=== PATIENT | male | born 1975 | race Caucasian/White ===

== ENCOUNTER 2018-03-23 16:35 | Emergency (ER) | payer MEDICARE, MEDICAID ==
[~2018-03-23] VITALS: Ht 172.7 cm; Wt 81.8 kg
[~2018-03-23 16:35] MED LIST: ATOR20TA66 PO; BUPR300T86 PO; CLON-527 PO; CLOZ100T PO; OMEP-50 PO; OXCA600T PO; VENL150T3 PO
[2018-03-23] MEDS ORDERED: OLANZapine 5mg rapidly disint. tablet PO ONE (16:45)
[2018-03-23 17:04] LABS: BASOPHILS % (AUTO) 0.3 % (0-1); EOSINOPHILS # (AUTO) 0.1 X10'3 (0-0.9); EOSINOPHILS % (AUTO) 1.5 % (0-6); HEMATOCRIT 38.1 % (42.0-52.0); HEMOGLOBIN 13.3 g/dl (14.0-17.9); LYMPHOCYTES # (AUTO) 2.1 X10'3 (1.1-4.8); LYMPHOCYTES % (AUTO) 26.6 % (21-51); MEAN CORPUSCULAR HEMOGLOBIN 32.7 PG (27.0-31.0); MEAN CORPUSCULAR HGB CONC 34.8 % (33.0-36.5); MEAN PLATELET VOLUME 6.6 FL (7.4-10.4); MONOCYTES # (AUTO) 0.6 X10'3 (0-0.9); MONOCYTES % (AUTO) 8.1 % (2-12); NEUTROPHILS % (AUTO) 63.5 % (42-75); PLATELET COUNT 266 X10'3 (140-440); RED BLOOD COUNT 4.05 X10'6 (4.70-6.10); RED CELL DISTRIBUTION WIDTH 14.3 % (11.5-14.5); WHITE BLOOD COUNT 7.9 X10'3 (4.5-11.0)
[2018-03-23 17:33] LABS: ALANINE AMINOTRANSFERASE 42 U/L (12-78); ALBUMIN/GLOBULIN RATIO 1.3 (1.1-1.5); ALKALINE PHOSPHATASE 90 IU/L (46-116); ANION GAP 7 (8-16); ASPARTATE AMINO TRANSFERASE 31 U/L (10-37); BILIRUBIN,TOTAL 0.3 MG/DL (0.1-1.0); BLOOD UREA NITROGEN 10 MG/DL (7-18); BUN/CREATININE RATIO 12.2 (5.4-32.0); CHLORIDE 99 MMOL/L (99-107); CREATININE 0.82 MG/DL (0.60-1.10); ETHANOL < 0.010 GM/DL (0.0-0.010); GLUCOSE 94 MG/DL (70-104); POTASSIUM 4.5 MMOL/L (3.5-5.1); SODIUM 134 MMOL/L (135-145); TOTAL PROTEIN 7.2 G/DL (6.4-8.2); eGFR > 90 ML/MIN
[2018-03-23 17:38] LABS: CLARITY,URINE CLEAR (Clear); COLOR,URINE YELLOW (Yellow); GLUCOSE, URINE NEGATIVE (Neg); KETONES,URINE NEGATIVE (Neg); LEUKOCYTE ESTERASE ,URINE NEGATIVE (Neg); NITRITES, URINE NEGATIVE (Neg); OCCULT BLOOD,URINE NEGATIVE (Neg); PROTEIN,URINE NEGATIVE (Neg); UROBILINOGEN,URINE 0.2 E.U/dL (0.2-1.0)
[2018-03-23 17:50] LABS: URINE AMPHETAMINE SCREEN NEGATIVE (Neg); URINE BARBITUATE SCREEN NEGATIVE (Neg); URINE BENZODIAZEPINES SCREEN NEGATIVE (Neg); URINE CANNABINOID SCREEN NEGATIVE (Neg); URINE COCAINE SCREEN NEGATIVE (Neg); URINE METHADONE SCREEN NEGATIVE (Neg); URINE OPIATE SCREEN NEGATIVE (Neg); URINE PHENCYCLIDINE SCREEN NEGATIVE (Neg)
[2018-03-23 17:59] LABS: UA COLLECTION TYPE CLN CATCH MIDSTREAM
[2018-03-23] MEDS ORDERED: MULT-955 PO (21:02)
[2018-03-23] MEDS ORDERED: CHOL50004 PO (21:02)
[2018-03-23] MEDS ORDERED: VENL-190 (21:02)
[2018-03-23] MEDS ORDERED: DOCU250C4 PO (21:08)
[2018-03-23] MEDS ORDERED: OLAN15TA3 PO (21:08)
[2018-03-23] MEDS ORDERED: CLOZ200T PO (21:10)
[2018-03-23] MEDS ORDERED: ACET325C (21:11)
[2018-03-23] MEDS ORDERED: LORA1TAB PO (21:12)
[2018-03-23] MEDS ORDERED: acetaminophen 325mg tablet PO PRN (21:25)
[2018-03-23] MEDS ORDERED: LORazepam 1 MG tablet PO PRN (21:30)
[2018-03-23] MEDS ORDERED: CLOZAPINE 100MG TAB PO ONE (21:30)
[2018-03-23] MEDS: clonazePAM 1mg tablet PO SCH (22:01)
[2018-03-23] MEDS: oxcarbazepine 150mg tablet PO SCH (22:01)
[2018-03-23] MEDS: atorvastatin 20mg tablet PO SCH (22:02)
[2018-03-23] MEDS: OLANZapine 5mg rapidly disint. tablet PO SCH (22:04)
[2018-03-24] MEDS ORDERED: clonazePAM 1mg tablet PO SCH (08:00)
[2018-03-24] MEDS ORDERED: atorvastatin 20mg tablet PO SCH (08:00)
[2018-03-24] MEDS ORDERED: multivitamins, therapeutics tablet PO SCH (08:00)
[2018-03-24] MEDS ORDERED: vitamin D (cholecalciferol) 1,000 unit tablet PO SCH (08:00)
[2018-03-24] MEDS ORDERED: oxcarbazepine 150mg tablet PO SCH (08:00)
[2018-03-24] MEDS ORDERED: venlafaxine XR 75mg capsule (Q24H) PO SCH (08:00)
[2018-03-24] MEDS: oxcarbazepine 150mg tablet PO SCH ×2 (09:49→21:14)
[2018-03-24] MEDS: docusate sod 250mg capsule PO SCH ×2 (09:50→21:11)
[2018-03-24] MEDS: clonazePAM 1mg tablet PO SCH ×2 (09:51→21:12)
[2018-03-24] MEDS ORDERED: CLOZAPINE 100MG TAB PO SCH (21:00)
[2018-03-24] MEDS ORDERED: OLANZapine 5mg rapidly disint. tablet PO SCH (21:00)
[2018-03-24] MEDS: atorvastatin 20mg tablet PO SCH (21:12)
[2018-03-24] MEDS: OLANZapine 5mg rapidly disint. tablet PO SCH (21:24)
[2018-03-25 06:01] VITALS: BP 114/68
== END 2018-03-25 07:23 ==
LOC: ER 16:35
DX: F31.9 Bipolar disorder, unspecified (principal); R45.851 Suicidal ideations; F25.0 Schizoaffective disorder, bipolar type; E11.9 Type 2 diabetes mellitus without complications; F41.9 Anxiety disorder, unspecified; F32.9 Major depressive disorder, single episode, unspecified; F15.10 Other stimulant abuse, uncomplicated; Z79.899 Other long term (current) drug therapy; Z59.0 Homelessness; Z56.0 Unemployment, unspecified; Z60.2 Problems related to living alone
CPT/HCPCS: 36415; 80053; 80305; 80320; 81003; 84443; 85025; 99285

== ENCOUNTER 2025-08-28 13:51 | Inpatient (IN) | payer MEDICARE, MEDICAID ==
[~2025-08-28] VITALS: Ht 172.7 cm; Wt 84.3 kg
[~2025-08-28 13:51] MED LIST changes: +ACET325C3; -BUPR300T86 PO; +CHOL50004 PO; -CLOZ100T PO; +CLOZ200T8 PO; +DOCU-395 PO; +LORA1TAB PO; +MULT-955 PO; +OLAN15TA3 PO; -OMEP-50 PO; -OXCA600T PO; +OXCA600T9 PO; +VENL-190; -VENL150T3 PO
[2025-08-28 14:42] LABS: LEUKOCYTE ESTERASE ,URINE NEGATIVE (Neg); NITRITES, URINE NEGATIVE (Neg); OCCULT BLOOD,URINE NEGATIVE (Neg)
[2025-08-28 14:47] LABS: UA COLLECTION TYPE CLN CATCH MIDSTREAM
--- NOTE | 2025-08-28 14:47 | Physician Documentation ---
History of Present Illness ~ Chief Complaint: Mental Health Eval Stated Complaint: MH Time Seen by MD: 14:33 Primary Medical Doctor: Jl Mode of Arrival: EMS, Stretcher HPI 50-year-old male presents to the ED with a complaint of suicide ideation. Patient is conserved and reports that he has a plan to kill himself via swallowing glass or cutting himself.. Medication Reconciliation Allergies: Coded Allergies: No Known Allergies (Unverified , 09/22/11) Scheduled Atorvastatin Calcium (Atorvastatin Calcium), 1 TAB PO DAILY, (Reported) Buspirone Hcl* (Buspar*), 1 TAB PO TID, (Reported) Carbamazepine (Carbamazepine), 1 TAB PO TID, (Reported) Chlorpromazine Hcl* (Thorazine*), 100 MG PO Q4H, (Reported) Cholecalciferol (Vitamin D3), 5,000 UNIT PO DAILY, (Reported) Clonazepam (Klonopin), 1 TABLET PO BID, (Reported) Clozapine (Clozapine), 3 TAB PO HS, (Reported) Ferrous Sulfate (Iron), 1 TAB PO HS, (Reported) Gabapentin (Gabapentin), 1 CAP PO Q6H, (Reported) Gabapentin (Gabapentin), 1 TAB PO TID, (Reported) Loperamide HCl (Imodium A-D), 2 CAP PO PRN, (Reported) Multivitamin (Daily Value), 1 TAB PO DAILY, (Reported) Oxcarbazepine (Oxcarbazepine), 750 MG PO BID, (Reported) Risperidone (Risperidone), 1 TAB PO Q12H, (Reported) Risperidone (Risperidone), 1 TAB PO DAILY@1200, (Reported) Trazodone HCl (Trazodone HCl), 1 TAB PO HS, (Reported) Venlafaxine HCl (Effexor Xr), 3 CAP DAILY, (Reported) Scheduled PRN Acetaminophen (Acetaminophen), 2 TAB Q6H PRN for pain, (Reported) Discontinued Medications Docusate Sodium (Docusate Sodium), 1 CAP PO Q12H, (Reported) Discontinued Reason: patient no longer taking Lorazepam* (Ativan*), 1 TAB PO Q8H PRN for for anxiety/agitation, (Reported) Discontinued Reason: patient no longer taking Olanzapine (Zyprexa), 1 TAB PO HS, (Reported) Discontinued Reason: patient no longer taking Past Medical History 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 Physical Exam Vital Signs: Temperature: 98.2, Source: Oral, Heart Rate: 98, Respiratory Rate: 18, BP: 114/75, Pulse Oximetry: 92, Weight: 77.500 Progress Results/Orders Results/Orders Vital Signs 08/28/25 08/28/25 08/28/25 08/28/25 14:05 14:13 17:43 18:33 Temp 98.2 97.2 Pulse 98 62 Resp 17 18 14 B/P (MAP) 114/75 122/71 (88) Pulse Ox 92 94 08/29/25 05:59 Resp 16 B/P (MAP) 127/77 (94) Pulse Ox 94 Laboratory Tests Test 08/28/25 14:05 08/28/25 14:41 08/28/25 14:42 Urine Specimen Description Cln catch midstream Urine Color Yellow Urine Clarity Clear Urine pH 8.0 Urine Specific [place] 1.015 Urine Protein Negative Urine Glucose (UA) Negative Urine Ketones Negative Urine Occult Blood Negative Urine Nitrite Negative Urine Bilirubin Negative Urine Urobilinogen 0.2 Urine Leukocyte Esterase Negative Volume Urine Centrifuged 10 ml Urine Comment Urine Opiates Screen Negative Urine Methadone Screen Negative Urine Fentanyl Screen Negative Urine Barbiturates Screen Negative Urine Phencyclidine Screen Negative Urine Amphetamines Screen Negative Urine Benzodiazepines Screen Negative Urine Cocaine Screen Negative Urine Cannabinoids Screen Negative Drug Screen Comment White Blood Count 6.7 Red Blood Count 4.00 L Hemoglobin 12.7 L Hematocrit 37.2 L Mean Corpuscular Volume 93.1 Mean Corpuscular Hemoglobin 31.6 H Mean Corpuscular Hemoglobin Concent 34.0 Red Cell Distribution Width 13.0 Platelet Count 195 Mean Platelet Volume 6.9 L Neutrophils (%) (Auto) 62.9 Lymphocytes (%) (Auto) 27.7 Monocytes (%) (Auto) 9.0 Eosinophils (%) (Auto) 0.2 Basophils (%) (Auto) 0.2 Neutrophils # (Auto) 4.2 Lymphocytes # (Auto) 1.9 Monocytes # (Auto) 0.6 Eosinophils # (Auto) 0.0 Basophils # (Auto) 0.0 CBC Comment Sodium Level 136 Potassium Level 3.9 Chloride Level 100 Carbon Dioxide Level 30.5 Anion Gap 6 L Blood Urea Nitrogen 9 Creatinine 0.65 Estimated GFR/1.73 m2 > 90 BUN/Creatinine Ratio 13.8 Glucose Level 76 Calcium Level 8.5 Albumin 3.7 Thyroid Stimulating Hormone (TSH) 3.48 Chemistry Comments Ethyl Alcohol Level < 10 SARS-CoV-2 Antigen (Rapid) Negative Departure Impression: Primary Impression: Suicidal ideation Additional Impression: Schizophrenia Additional Instructions: Transfer orders for [facility]: At this time there is no evidence of an emergent medical condition that would preclude (admission/transfer) to a psychiatric unit via [facility] protocol for further psychiatric, as well as medical evaluation and treatment. At this time I have no reason to believe that transfer via [facility] protocol would have serious medical compromise in the patient's health. Referrals: NO PRIMARY CARE PROVIDER (PCP) Signature Scribe Signature: v Attestation: Scribed for Bruce Galeano Records Coordinator by Bruce Wu NP . 08/28/25 23:32 Addendum Pt signed out to me as part of their psychiatric ED evaluation. Pt resting well. Vital signs within expected ranges. Brief Physical Examination: Alert and appropriately oriented. No signs of respiratory distress. Able to ambulate and move all extremities. Medical evaluation does not indicate metabolic derangement. Awaiting final disposition. Though possibly present, patient's symptoms are more consistent with psychiatric concerns than syndromes related to recreational drug use. No evidence of DT's while in the ED during my shift. Ambulating without difficulty. Speaking in full sentences. Easily arousable and interactive. Hemodynamically stable. The patient is currently awaiting Behavioral Health final evaluation and disposition. BRUCE GALEANO NP Aug 28, 2025 14:47 GLORIA CLEMENTS MD Aug 29, 2025 06:13
[2025-08-28 14:51] LABS: MEAN PLATELET VOLUME 6.9 FL (7.4-10.4); RED CELL DISTRIBUTION WIDTH 13.0 % (11.5-14.5)
[2025-08-28 14:57] LABS: URINE AMPHETAMINE SCREEN NEGATIVE (Neg); URINE BARBITUATE SCREEN NEGATIVE (Neg); URINE BENZODIAZEPINES SCREEN NEGATIVE (Neg); URINE CANNABINOID SCREEN NEGATIVE (Neg); URINE COCAINE SCREEN NEGATIVE (Neg); URINE METHADONE SCREEN NEGATIVE (Neg); URINE OPIATE SCREEN NEGATIVE (Neg); URINE PHENCYCLIDINE SCREEN NEGATIVE (Neg)
[2025-08-28 15:15] LABS: CREATININE 0.65 MG/DL (0.60-1.10); ETHANOL < 10 MG/DL (<10); TOTAL CARBON DIOXIDE 30.5 MMOL/L (24-32); eCRCL 133 ML/MIN; eGFR > 90 ML/MIN
[2025-08-28] MEDS ORDERED: CHLO10TA18 PO (16:07)
[2025-08-28] MEDS ORDERED: GABA-530 PO (16:07)
[2025-08-28] MEDS ORDERED: CARB-78 PO (16:07)
[2025-08-28] MEDS ORDERED: RISP-32 PO (16:07)
[2025-08-28] MEDS ORDERED: RISP3TAB42 PO (16:07)
[2025-08-28] MEDS ORDERED: GABA-1405 PO (16:07)
[2025-08-28] MEDS ORDERED: FERR-119 PO (16:07)
[2025-08-28] MEDS ORDERED: BUSP10TA11 PO (16:07)
[2025-08-28] MEDS ORDERED: LOPE-190 PO (16:07)
[2025-08-28] MEDS ORDERED: TRAZ-251 PO (16:07)
[2025-08-28] MEDS ORDERED: loperamide 2mg capsule PO PRN (16:40)
[2025-08-28] MEDS: carBAMazepine 100mg chewable tablet PO SCH (20:02)
[2025-08-29] MEDS: venlafaxine XR 75mg capsule (Q24H) PO SCH (09:18)
[2025-08-29] MEDS: cholecalciferol (vitamin D3) 1,000 unit (25mcg) tablet PO SCH (09:18)
[2025-08-29] MEDS: multivitamins, therapeutics tablet PO SCH (09:19)
[2025-08-29 16:32] LABS: MEAN PLATELET VOLUME 7.5 FL (7.4-10.4); RED CELL DISTRIBUTION WIDTH 13.2 % (11.5-14.5)
[2025-08-29 16:35] VITALS: BP 97/57; PULSE 77; RESP 16; TEMP 97.8; O2SAT 94
[2025-08-29 19:19] VITALS: RESP 16; O2SAT 98
[2025-08-29 20:00] VITALS: BP 110/55; PULSE 64; RESP 16; TEMP 98.4; O2SAT 98
[2025-08-30 07:00] VITALS: BP 109/73; PULSE 72; RESP 16; TEMP 98.8; O2SAT 97
[2025-08-30 08:00] VITALS: RESP 16; O2SAT 97
[2025-08-30 11:39] LABS: MEAN PLATELET VOLUME 7.2 FL (7.4-10.4); RED CELL DISTRIBUTION WIDTH 12.9 % (11.5-14.5)
[2025-08-30] MEDS: NICOTINE POLACRILEX 2 MG LOZENGE BC PRN (12:33)
--- NOTE | 2025-08-30 13:26 | HISTORY AND PHYSICAL ---
MH History & Physical - Blank History and Physical CHIEF COMPLIANT SUICIDAL IDEATION HISTORY OF PRESENT ILLNESS Micah is a 50-year-old male who was placed on a 1799 by [facility] per medical documentation client reported that he is experiencing suicidal ideation with a plan to kill himself by swallowing glass or cutting himself. Client is conserved [facility] in his a client of the start team client currently resides at [facility] facility unlocked. Client has resided and a [facility] for the previous year. This clinician met with client at bedside client was awake and alert was communicative behaviorally appropriate and responsive to this clinician. Client speech was difficult to comprehend often mumbling with difficulties with pronunciation. Client appears moderately oriented however client has been experiencing breakthrough auditory hallucinations. Client reports that he became overwhelmed the previous evening reports that the microphone would not leave him alone leading to onset of suicidal thoughts with a plan intent and means. Client reports that he needed to get space and out of his head. Client reports he informed staff leading staff to request 911 services. CHART REVIEW Pt was placed on a 5150 hold after being evaluated by [facility] clinician due to decompensation at his [facility] facility, [facility]. The pt is LPS conversed with a long history of mental illness, hospitalizations which led to his current conservatorship status. 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 The pt has a history of self-harm to include swallowing foreign objects to the point of requiring medical intervention.The ptappears to have fair insight and is concerned about his medications today. The pt reports that he's afraid that his medications and dosages are mixed up somehow. The pt is pleasant and happy that he is on the unit to obtain assistance in stabilization of his mental health in hopes that he can return to his current [facility] placement. Placement will be determined as the pt stabilizes and his conversator decides an appropriate level of care and placement for the pt. Pt is a current client at [facility] and has a treatment team that supports him adequately. Discharge planning to begin once the pt is stabilized in his mental health symptoms. ASSESSMENT The patient was interviewed in observation room. The patient was actively standing in hallway. The patient endorses "I am doing good." I had someone break through a microphone and I was getting suicidal it does not happen all the time but sometimes." "The microphone came back from wherever they were." 'I do have depression and I take Remeron and Effexor but I am not depressed now." The patient endorses he sees psychiatrist Dr. Boyce as [facility] in [place]. "I been taking my meds I never missed my meds at home." "I live at [facility] and they hand out my meds to me." "I am too drowsy during the day." Denies SI. Denies HI. Denies VH +AH. The patient endorses adequate sleep and food intake The patient is stable no acute distress noted. The patient presents as agitated, irritable with + AH. Per staff report patient is medication compliant. Per staff report no abnormal behaviors. Will continue daily assessment and adjusting treatment as needed. Closely monitor behavior and response to medication during hospitalization. Discussed treatment plan with patient. ASE/risks and benefits of chosen treatment. He verbalized understanding and consented to treatment. REVIEW OF LABS WBC 6.7 RBC 4.00 HEMOGLOBIN 12.7 HEMATOCRIT 37.2 PLATELET 195 SODIUM 136 POTASSIUM 3.9 CHLORIDE 100 ANION GAP 6 BUN 9 CREATININE 0.65 EGFR >90 GLUCOSE 76 CALCIUM 8.5 ALBUMIN 3.7 TSH URINALYSIS NEGATIVE URINE TOX SCREEN NEGATIVE TSH 3.48 MENTAL STATUS EXAM APPEARANCE:AVERAGE HEIGHT OBESE MALE. WEARING A BLACK HAT.BREAD AND MUSTACHE. WEARING GREEN SCRUBS. SPEECH: CIRCUMSTANTIAL EYE CONTACT: NORMAL AFFECT: FULL MOOD: ANXIOUS, IRRITABLE ORIENTATION IMPAIRMENT: NONE MEMORY IMPAIRMENT: NONE ATTENTION: FULL HALLUCINATIONS: AUDITORY SUICIDALITY: NONE DELUSIONS:NONE BEHAVIOR: AGITATED JUDGMENT: FAIR INSIGHT: FAIR TREATMENT VENLAFAXINE ER 225 MG P.O. DAILY Increase CLOZAPINE 300 MG P.O. Q.A.M. CLOZAPINE 550 MG P.O. Q.H.S. RISPERIDONE 3 MG P.O. B.I.D. Discontinue RISPERIDONE 2 MG AT NOON REMERON 45 MG P.O. Q.H.S. initiate GABAPENTIN 600 MG PO TID Discontinue KLONOPIN 1 MG P.O. B.I.D. LPS Monitoring by Staff, Milieu, Group, and Individual counseling as needed -- According to the [place] Suicide Assessment the above named patient is on Q15 MINUTE CHECKS. Total time spent 120 minutes on REVIEW OF Clinical notes [X ] RN notes [X] PCT documentation [X] SW notes Labs [ X] Medications [X] Care trends/care activity [X] Vitals [X] DISCUSSION WITH cleaner greaser [X] Staff SW Treatment Team [X] DISCHARGE UNSURE AT THIS TIME. DISCHARGE BACT TO [facility] ONCE STABLE Past Psychiatric History Past Psychiatric History MULTIPLE PSYCHIATRIC MENTAL HEALTH HOSPITALIZATIONS SCHIZOAFFECTIVE DISORDER Past Medical History Past Medical History SEE MEDICAL H & P Past Surgical History Past Surgical History DENIES ANY SURGICAL HISTORY Past Family History Patient History: (DM Type1) Diabetes mellitus type 1 GRANDFATHER OR GRANDMOTHER Alzheimer's disease GRANDFATHER OR GRANDMOTHER Hypercholesterolemia FATHER Substance Abuse History Substance Abuse History MARIJUANA-DENIES TOBACCO-1 PPD ALCOHOL-DENIES ILLICIT DRUGS-SIX YEARS CLEAN A METHAMPHETAMINES Personal History Current Living Situation [facility] Marital & Relationship History NEVER . NO CHILDREN. SINGLE. Sexual History DEFER Occupational History UNEMPLOYED [employer] Social Activity BORN AND RAISED IN [facility] ONE SISTER ONE BROTHER DROPPED OUT IN 9TH GRADE GREW UP WITH BOTH MOM AND DAD IN HOME [employer] Legal History ARRESTED FOR UNDER THE INFLUENCE OF METHAMPHETAMINES History DENIES ANY HISTORY Developmental History Childhood DENIES ANY FORM OF ABUSE Assessment/Plan Problems/Diagnosis: (1) Schizoaffective disorder, chronic condition (2) Suicidal ideation CODING VISIT-PSYCHIATRY Date of Service: Aug 30, 2025 Billing Provider: TAIWO FRANCES APRN Psych Common Visit Codes: [id number] INP/OBS CARE (High) TAIWO FRANCES APRN Aug 30, 2025 13:26
--- NOTE | 2025-08-30 16:49 | HISTORY AND PHYSICAL ---
History & Physical Providers to CC ~ History of Present Illness Reason for Admit\Complaint: suicide ideation History of Present Illness 50-year-old male presented to the ED with a complaint of suicide ideation. Patient is conserved and reported that he has a plan to kill himself via swallowing glass or cutting himself.. Patient denied having any chronic medical issues. He does take psych medication in outpatient setting from provider . No other acute issues Allergies: Coded Allergies: No Known Allergies (Unverified , 09/22/11) Home Medications Home Medications Active Reported Imodium A-D (Loperamide HCl) 2 Mg Capsule 2 Cap PO PRN 5 Days Thorazine* (Chlorpromazine HCl) 10 Mg Tablet 100 Mg PO Q4H 30 Days Carbamazepine 200 Mg Tablet 1 Tab PO TID 30 Days Gabapentin 600 Mg Tablet 1 Tab PO TID 30 Days Iron (Ferrous Sulfate) 325 Mg (65 Mg Iron) Tablet 1 Tab PO HS 30 Days Buspar* (Buspirone HCl) 10 Mg Tablet 1 Tab PO TID Risperidone 2 Mg Tablet 1 Tab PO DAILY@1200 30 Days Risperidone 3 Mg Tab.rapdis 1 Tab PO Q12H 30 Days Gabapentin 100 Mg Capsule 1 Cap PO Q6H 30 Days Trazodone HCl 50 Mg Tablet 1 Tab PO HS 30 Days Acetaminophen 325 Mg Capsule 2 Tab Q6H PRN Clozapine 200 Mg Tablet 3 Tab PO HS Vitamin D3 (Cholecalciferol) 5,000 Unit Capsule 5,000 Unit PO DAILY Effexor Xr (Venlafaxine HCl) 75 Mg Cap.sr.12h 3 Cap DAILY Daily Value (Multivitamin) 1 Each Tablet 1 Tab PO DAILY Atorvastatin Calcium 20 Mg Tablet 1 Tab PO DAILY Oxcarbazepine 600 Mg Tablet 750 Mg PO BID Klonopin (Clonazepam) 1 Mg Tablet 1 Tablet PO BID Past Medical History 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*, 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, Diabetes, Anxiety, Depression, Schizophrenia Past Surgical History Surgical History Comment no surgical history Family History Family History: (DM Type1) Diabetes mellitus type 1 GRANDFATHER OR GRANDMOTHER Alzheimer's disease GRANDFATHER OR GRANDMOTHER Hypercholesterolemia FATHER Past Social History Social History Comment Alcohol Use: None Drug Use: methamphetamine Lives with: Alone Lives In: Homeless Occupation: unemployed ROS ROS Review of system as mentioned above in HPI rest of the review of system unremarkable Exam Vitals: Vital Signs Date Time Temp Pulse Resp B/P (MAP) Pulse Ox O2 Delivery O2 Flow Rate FiO2 10/1/25 08:00 16 97 Room Air 08/30/25 07:00 98.8 72 109/73 (85) General: General-patient not in any acute distress, alert awake chronically ill- appearing, age-appropriate, looks comfortable HEENT-atraumatic normocephalic, neck supple without elevated JVD, No lymphadenopathy bilaterally. Eyes-no icterus or pallor seen in eyes Chest-clear to auscultation bilaterally, breathing nonlabored no tachypnea, no wheezing, no crepitation, no crackles. 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 Patient is admitted for suicidal lead ideation and other psychiatric issues. Further management as per psychiatric team. We will continue to follow patient from hospitalist team as needed or as per protocol. All labs reviewed. Date of Service: Aug 30, 2025 Billing Provider: MARIE NGUYEN MD Common Visit Codes: [id number] INP/OBS CARE (LOW) MARIE NGUYEN MD Aug 30, 2025 16:49
[2025-08-30 19:00] VITALS: RESP 16; O2SAT 96
[2025-08-30 20:00] VITALS: BP 93/56; PULSE 61; RESP 16; TEMP 96.6; O2SAT 96
[2025-08-31 07:15] VITALS: BP 112/57; PULSE 65; RESP 16; TEMP 98.1; O2SAT 96
[2025-08-31 08:00] VITALS: RESP 16; O2SAT 96
--- NOTE | 2025-08-31 13:43 | PROGRESS NOTE ---
Progress Note Dictate Providers to CC ~ Central Line/PICC still needed: N\\A Antibiotic Ordered?: No MRSA Education MRSA Education Provided to pt: No Objective Vitals Vital Signs Date Time Temp Pulse Resp B/P (MAP) Pulse Ox O2 Delivery O2 Flow Rate FiO2 08/31/25 08:00 16 96 Room Air 08/31/25 07:15 98.1 65 112/57 (75) Lab Results: 08/30/25 1122 08/28/25 1441 Psychiatrist's Progress Note Date of Service: Aug 31, 2025 Notes CHART REVIEW Pt was placed on a 5150 hold after being evaluated by [facility] clinician due to decompensation at his board and care facility, [facility]. The pt is LPS conversed with a long history of mental illness, hospitalizations which led to his current conservatorship status. 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 The pt has a history of self-harm to include swallowing foreign objects to the point of requiring medical intervention.The ptappears to have fair insight and is concerned about his medications today. The pt reports that he's afraid that his medications and dosages are mixed up somehow. The pt is pleasant and happy that he is on the unit to obtain assistance in stabilization of his mental health in hopes that he can return to his current board and care placement. Placement will be determined as the pt stabilizes and his conversator decides an appropriate level of care and placement for the pt. Pt is a current client at [facility] and has a treatment team that supports him adequately. Discharge planning to begin once the pt is stabilized in his mental health symptoms. ASSESSMENT The patient was interviewed in observation room. The patient was actively standing in hallway. The patient endorses " Denies SI. Denies HI. Denies AVH. The patient endorses adequate sleep and food intake The patient is stable no acute distress noted. The patient presents as. Per staff report patient is medication compliant. Per staff report no abnormal behaviors Will continue daily assessment and adjusting treatment as needed. Closely monitor behavior and response to medication during hospitalization. MENTAL STATUS EXAM APPEARANCE:AVERAGE HEIGHT OBESE MALE. FULL WHITE AMBROSIO GAN HAIR BALDING AT THE TOP. WEARING GREEN SCRUBS. SPEECH: CIRCUMSTANTIAL EYE CONTACT: NORMAL AFFECT: FULL MOOD: ANXIOUS, IRRITABLE ORIENTATION IMPAIRMENT: NONE MEMORY IMPAIRMENT: NONE ATTENTION: FULL HALLUCINATIONS: AUDITORY SUICIDALITY: NONE DELUSIONS:NONE BEHAVIOR: AGITATED JUDGMENT: FAIR INSIGHT: FAIR TREATMENT VENLAFAXINE ER 225 MG P.O. DAILY CLOZAPINE 300 MG P.O. Q.A.M. CLOZAPINE 550 MG P.O. Q.H.S. RISPERIDONE 3 MG P.O. B.I.D. REMERON 45 MG P.O. Q.H.S. GABAPENTIN 600 MG PO TID 5250 HOLD-DTS- Patient is unable to formulate a plan to safety. We are still titrating medications to an effective dose while maintaining a therapeutic environment to prevent decompensation and readmission. Monitoring by Staff, Milieu, Group, and Individual counseling as needed -- According to the [place] Suicide Assessment the above named patient is on Q15 MINUTE CHECKS. Total time spent 120 minutes on REVIEW OF Clinical notes [X ] RN notes [X] PCT documentation [X] SW notes Labs [ X] Medications [X] Care trends/care activity [X] Vitals [X] DISCUSSION WITH shipping and receiving [X] Staff SW Treatment Team [X] DISCHARGE UNSURE AT THIS TIME. [facility] ON[facility] ST[facility] Results Of any Diagn. Testing REVIEW OF LABS WBC 6.7 RBC 4.00 HEMOGLOBIN 12.7 HEMATOCRIT 37.2 PLATELET 195 SODIUM 136 POTASSIUM 3.9 CHLORIDE 100 ANION GAP 6 BUN 9 CREATININE 0.65 EGFR >90 GLUCOSE 76 CALCIUM 8.5 ALBUMIN 3.7 TSH URINALYSIS NEGATIVE URINE TOX SCREEN NEGATIVE TSH 3.48 CODING VISIT-PSYCHIATRY Date of Service: Aug 31, 2025 Billing Provider: TAIWO FRANCES APRN Psych Common Visit Codes: [id number] INP/OBS CARE(Mod) TAIWO FRANCES APRN Aug 31, 2025 13:43
[2025-08-31 19:00] VITALS: RESP 16; O2SAT 92
[2025-08-31 20:00] VITALS: BP 97/56; PULSE 70; RESP 16; TEMP 97.6; O2SAT 92
[2025-09-01 07:30] VITALS: BP 98/62; PULSE 67; RESP 16; TEMP 97.9; O2SAT 95
[2025-09-01] MEDS: magnesium hydroxide 30ml (MOM) UD suspension PO PRN (10:18)
--- NOTE | 2025-09-01 15:39 | PROGRESS NOTE ---
Progress Note Dictate Providers to CC ~ Central Line/PICC still needed: N\\A Antibiotic Ordered?: No MRSA Education MRSA Education Provided to pt: No Objective Vitals Vital Signs Date Time Temp Pulse Resp B/P (MAP) Pulse Ox O2 Delivery O2 Flow Rate FiO2 09/01/25 07:30 97.9 67 98/62 (74) 95 Room Air 09/01/25 07:30 16 Lab Results: 08/30/25 1122 08/28/25 1441 Problem\\Assessment\\Plan Problems/Diagnosis: (1) Schizoaffective disorder, chronic condition (2) Suicidal ideation Psychiatrist's Progress Note Date of Service: Sep 01, 2025 Notes CHART REVIEW Pt was placed on a 5150 hold after being evaluated by [facility] clinician due to decompensation at his board and care facility, [facility]. The pt is LPS conversed with a long history of mental illness, hospitalizations which led to his current conservatorship status. 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 The pt has a history of self-harm to include swallowing foreign objects to the point of requiring medical intervention.The ptappears to have fair insight and is concerned about his medications today. The pt reports that he's afraid that his medications and dosages are mixed up somehow. The pt is pleasant and happy that he is on the unit to obtain assistance in stabilization of his mental health in hopes that he can return to his current board and care placement. Placement will be determined as the pt stabilizes and his conversator decides an appropriate level of care and placement for the pt. Pt is a current client at [facility] and has a treatment team that supports him adequately. Discharge planning to begin once the pt is stabilized in his mental health symptoms. ASSESSMENT The patient was interviewed in observation room. The patient was actively sitting in chair with legs crossed on his bed. The patient endorses "I am feeling pretty good." "I am ready to go back to [facility]." The patient endorses no worsening mental health symptoms. Denies SI. Denies HI. Denies AVH. "The voices are good."The patient endorses adequate sleep and food intake The patient is stable no acute distress noted. The patient presents as less anxious. Per staff report patient is medication compliant. Per staff report no abnormal behaviors. Will continue daily assessment and adjusting treatment as needed. Closely monitor behavior and response to medication during hospitalization. Results Of any Diagn. Testing REVIEW OF LABS WBC 6.7 RBC 4.00 HEMOGLOBIN 12.7 HEMATOCRIT 37.2 PLATELET 195 SODIUM 136 POTASSIUM 3.9 CHLORIDE 100 ANION GAP 6 BUN 9 CREATININE 0.65 EGFR >90 GLUCOSE 76 CALCIUM 8.5 ALBUMIN 3.7 TSH URINALYSIS NEGATIVE URINE TOX SCREEN NEGATIVE TSH 3.48 Speech: Other (CIRCUMSTANTIAL) Eye Contact: Other (INTERMITTENT) Motor Activity: Normal Affect: Constricted Orientation Impairment: None Memory Impairment: None Attention: Normal Hallucinations: Auditory Other: None Suicidality: None Homicidality: None Delusions: None Behavior: Cooperative Insight: Fair Judgment: Fair Treatment VENLAFAXINE ER 225 MG P.O. DAILY CLOZAPINE 300 MG P.O. Q.A.M. CLOZAPINE 550 MG P.O. Q.H.S. RISPERIDONE 3 MG P.O. B.I.D. REMERON 45 MG P.O. Q.H.S. GABAPENTIN 600 MG PO TID 5250 HOLD-DTS- Patient is unable to formulate a plan to safety. We are still titrating medications to an effective dose while maintaining a therapeutic environment to prevent decompensation and readmission. Monitoring by Staff, Milieu, Group, and Individual counseling as needed -- According to the [place] Suicide Assessment the above named patient is on Q15 MINUTE CHECKS. Total time spent 40 minutes on REVIEW OF Clinical notes [X ] RN notes [X] PCT documentation [X] SW notes Labs [ X] Medications [X] Care trends/care activity [X] Vitals [X] DISCUSSION WITH mangle roll operator [X] Staff SW Treatment Team [X] Discharge UNSURE AT THIS TIME. DISCHARGE BACT TO [facility] ONCE STABLE CODING VISIT-PSYCHIATRY Date of Service: Sep 01, 2025 Billing Provider: TAIWO FRANCES APRN Psych Common Visit Codes: [id number] INP/OBS CARE(Mod) TAIWO FRANCES APRN Sep 01, 2025 15:39
--- NOTE | 2025-09-01 16:23 | PROGRESS NOTE- Residence ---
Progress Note - Resident Providers to CC Resident Creating Document: SVETLANA QURESHI RES ~ Antibiotic Timeout Antibiotic Ordered?: No Subjective Patient was seen and examined in the [facility] unit. He was alert, communicative, in no acute distress. He denied any issues other than constipation, for which she reported taking milk of magnesia and was awaiting relief. He was advised to notify staff if constipation persists or does not improve. Objective Vital Signs Date Time Temp Pulse Resp B/P (MAP) Pulse Ox O2 Delivery O2 Flow Rate FiO2 09/01/25 07:30 97.9 67 98/62 (74) 95 Room Air 09/01/25 07:30 16 General: Awake and Alert, no acute distress. HEENT: Conjunctiva pink, Sclera clear, Mucus Membranes moist. Neck: Supple without masses and tenderness. Resp: Unlabored. Lungs clear to auscultation bilaterally. Heart: Regular Rate and rhythm, normal S1 and S2 without murmur, rub or gallop. Abdomen: Soft and non tender no organomegaly Extremities: No cyanosis,clubbing or edema. Skin: Warm and Dry. Result Diagram: 08/30/25 1122 08/28/25 1441 Advance Care Planning Advanced Care plannin - 30 Minutes Assessment Assessment Assessment and plan Patient is a 50-year-old male with a history of seizure disorder and she is a free in a, admitted to the [facility] unit for suicidal ideation. He is currently being managed by psychiatry team. Suicidal ideation/schizophrenia History of seizure disorder Being managed by Psychiatry unit Medical issues No acute medical problems at this time Hospitalist Services we will follow for medical support as needed. At present, the patient has no acute medical issues. Svetlana Qureshi Internal Medicine Resident, PGY-3 Date of Service: Sep 01, 2025 Billing Provider: JHONATAN LOPEZ MD Common Visit Codes: [id number] INP/OBS CARE(MOD) SVETLANA QURESHI RES Sep 01, 2025 16:23 JHONATAN LOPEZ MD Sep 02, 2025 09:46
[2025-09-01 19:00] VITALS: RESP 18; O2SAT 97
[2025-09-01 20:00] VITALS: BP 89/55; PULSE 77; RESP 18; TEMP 98; O2SAT 97
[2025-09-02 07:00] VITALS: RESP 12; O2SAT 97
[2025-09-02 08:00] VITALS: BP 106/61; PULSE 69; RESP 12; TEMP 97.6; O2SAT 97
--- NOTE | 2025-09-02 15:50 | PROGRESS NOTE ---
Progress Note Dictate Providers to CC ~ Central Line/PICC still needed: N\\A Antibiotic Ordered?: No MRSA Education MRSA Education Provided to pt: No Objective Vitals Vital Signs Date Time Temp Pulse Resp B/P (MAP) Pulse Ox O2 Delivery O2 Flow Rate FiO2 09/02/25 08:00 97.6 69 12 106/61 (76) 97 09/02/25 07:00 Room Air Lab Results: 08/30/25 1122 Problem\\Assessment\\Plan Problems/Diagnosis: (1) Schizoaffective disorder, chronic condition (2) Suicidal ideation Psychiatrist's Progress Note Date of Service: Sep 02, 2025 Notes CHART REVIEW Pt was placed on a 5150 hold after being evaluated by [facility] clinician due to decompensation at his board and care facility, [facility]. The pt is LPS conversed with a long history of mental illness, hospitalizations which led to his current conservatorship status. 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 The pt has a history of self-harm to include swallowing foreign objects to the point of requiring medical intervention.The ptappears to have fair insight and is concerned about his medications today. The pt reports that he's afraid that his medications and dosages are mixed up somehow. The pt is pleasant and happy that he is on the unit to obtain assistance in stabilization of his mental health in hopes that he can return to his current board and care placement. Placement will be determined as the pt stabilizes and his conversator decides an appropriate level of care and placement for the pt. Pt is a current client at [facility] and has a treatment team that supports him adequately. Discharge planning to begin once the pt is stabilized in his mental health symptoms. ASSESSMENT The patient was interviewed in observation room. The patient was actively ambulating in hallway. The patient endorses "Good." The patient endorses no worsening mental health symptoms. Denies SI. Denies HI. Denies AVH. "The voices are good."The patient endorses adequate sleep and food intake The patient is stable no acute distress noted. The patient presents as calm and cooperative. Per staff report patient is medication compliant. Per staff report no abnormal behaviors. Will continue daily assessment and adjusting treatment as needed. Closely monitor behavior and response to medication during hospitalization. Results Of any Diagn. Testing REVIEW OF LABS WBC 6.7 RBC 4.00 HEMOGLOBIN 12.7 HEMATOCRIT 37.2 PLATELET 195 SODIUM 136 POTASSIUM 3.9 CHLORIDE 100 ANION GAP 6 BUN 9 CREATININE 0.65 EGFR >90 GLUCOSE 76 CALCIUM 8.5 ALBUMIN 3.7 TSH URINALYSIS NEGATIVE URINE TOX SCREEN NEGATIVE TSH 3.48 Treatment VENLAFAXINE ER 225 MG P.O. DAILY CLOZAPINE 300 MG P.O. Q.A.M. CLOZAPINE 550 MG P.O. Q.H.S. RISPERIDONE 3 MG P.O. B.I.D. REMERON 45 MG P.O. Q.H.S. GABAPENTIN 600 MG PO TID 5250 HOLD-DTS- Patient is unable to formulate a plan to safety. We are still titrating medications to an effective dose while maintaining a therapeutic environment to prevent decompensation and readmission. Monitoring by Staff, Milieu, Group, and Individual counseling as needed -- According to the [place] Suicide Assessment the above named patient is on Q15 MINUTE CHECKS. Total time spent 30 minutes on REVIEW OF Clinical notes [X ] RN notes [X] PCT documentation [X] SW notes Labs [ X] Medications [X] Care trends/care activity [X] Vitals [X] DISCUSSION WITH rn hemo dialysis [X] Staff SW Treatment Team [X] Discharge UNSURE AT THIS TIME. DISCHARGE BACK TO [facility] ONCE STABLE CODING VISIT-PSYCHIATRY Date of Service: Sep 02, 2025 Billing Provider: TAIWO FRANCES APRN Psych Common Visit Codes: [id number] INP/OBS CARE(Mod) TAIWO FRANCES APRN Sep 02, 2025 15:50
[2025-09-02 19:00] VITALS: RESP 16; O2SAT 97
[2025-09-02 20:00] VITALS: BP 101/61; PULSE 73; RESP 16; TEMP 97.4; O2SAT 97
[2025-09-03 07:00] VITALS: RESP 15; O2SAT 98
[2025-09-03 08:00] VITALS: BP 111/65; PULSE 73; RESP 14; TEMP 97.3; O2SAT 98
--- NOTE | 2025-09-03 10:28 | PROGRESS NOTE ---
Progress Note Dictate Providers to CC ~ Central Line/PICC still needed: N\\A Antibiotic Ordered?: No MRSA Education MRSA Education Provided to pt: No Objective Vitals Vital Signs Date Time Temp Pulse Resp B/P (MAP) Pulse Ox O2 Delivery O2 Flow Rate FiO2 09/03/25 08:00 97.3 73 14 111/65 (80) 98 Room Air Lab Results: 08/30/25 1122 Problem\\Assessment\\Plan Problems/Diagnosis: (1) Schizoaffective disorder, chronic condition (2) Suicidal ideation Psychiatrist's Progress Note Date of Service: Sep 03, 2025 Notes CHART REVIEW Pt was placed on a 5150 hold after being evaluated by [facility] clinician due to decompensation at his board and care facility, [facility]. The pt is LPS conversed with a long history of mental illness, hospitalizations which led to his current conservatorship status. 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 The pt has a history of self-harm to include swallowing foreign objects to the point of requiring medical intervention.The ptappears to have fair insight and is concerned about his medications today. The pt reports that he's afraid that his medications and dosages are mixed up somehow. The pt is pleasant and happy that he is on the unit to obtain assistance in stabilization of his mental health in hopes that he can return to his current board and care placement. Placement will be determined as the pt stabilizes and his conversator decides an appropriate level of care and placement for the pt. Pt is a current client at [facility] and has a treatment team that supports him adequately. Discharge planning to begin once the pt is stabilized in his mental health symptoms. ASSESSMENT The patient was interviewed in observation room. The patient was actively sitting up in chair in room. The patient endorses "pretty good." The patient endorses he hopes to get back to [facility] soon. The patient endorses he works there and makes $20 a week. "I need to get back to work." The patient endorses no worsening mental health symptoms. Denies SI. Denies HI. Denies AVH. The patient endorses adequate sleep and food intake The patient is stable no acute distress noted. The patient presents as calm and cooperative. Per staff report patient is medication compliant. Per staff report no abnormal behaviors. Will continue daily assessment and adjusting treatment as needed. Closely monitor behavior and response to medication during hospitalization. Results Of any Diagn. Testing REVIEW OF LABS WBC 6.7 RBC 4.00 HEMOGLOBIN 12.7 HEMATOCRIT 37.2 PLATELET 195 SODIUM 136 POTASSIUM 3.9 CHLORIDE 100 ANION GAP 6 BUN 9 CREATININE 0.65 EGFR >90 GLUCOSE 76 CALCIUM 8.5 ALBUMIN 3.7 TSH URINALYSIS NEGATIVE URINE TOX SCREEN NEGATIVE TSH 3.48 Speech: Normal (RATE/TONE/RHYTHM) Eye Contact: Normal Motor Activity: Normal Affect: Full Orientation Impairment: None Memory Impairment: None Attention: Normal Hallucinations: None Other: None Suicidality: None Homicidality: None Delusions: None Behavior: Cooperative Insight: Fair Judgment: Fair Treatment VENLAFAXINE ER 225 MG P.O. DAILY CLOZAPINE 300 MG P.O. Q.A.M. CLOZAPINE 550 MG P.O. Q.H.S. RISPERIDONE 3 MG P.O. B.I.D. REMERON 45 MG P.O. Q.H.S. GABAPENTIN 600 MG PO TID 5250 HOLD-DTS- Patient is unable to formulate a plan to safety. We are still titrating medications to an effective dose while maintaining a therapeutic environment to prevent decompensation and readmission. Monitoring by Staff, Milieu, Group, and Individual counseling as needed -- According to the [place] Suicide Assessment the above named patient is on Q15 MINUTE CHECKS. Total time spent 25 minutes on REVIEW OF Clinical notes [X ] RN notes [X] PCT documentation [X] SW notes Labs [ X] Medications [X] Care trends/care activity [X] Vitals [X] DISCUSSION WITH software technical lead [X] Staff SW Treatment Team [X] Discharge UNSURE AT THIS TIME. DISCHARGE BACK TO [facility] ONCE STABLE CODING VISIT-PSYCHIATRY Date of Service: Sep 03, 2025 Billing Provider: TAIWO FRANCES APRN Psych Common Visit Codes: [id number] INP/OBS CARE(Low) TAIWO FRANCES APRN Sep 03, 2025 10:27
--- NOTE | 2025-09-03 18:42 | PROGRESS NOTE- Residence ---
Progress Note - Resident Providers to CC Resident Creating Document: NORMA FANG, RES ~ Antibiotic Timeout Antibiotic Ordered?: No Subjective Patient was seen and examined in the [facility] unit. He was alert, communicative, in no acute distress. He denied any issues other than constipation, for which she reported taking milk of magnesia and was awaiting relief. He was advised to notify staff if constipation persists or does not improve. Objective Vital Signs Date Time Temp Pulse Resp B/P (MAP) Pulse Ox O2 Delivery O2 Flow Rate FiO2 09/03/25 08:00 97.3 73 14 111/65 (80) 98 Room Air Result Diagram: 08/30/25 1122 General: Awake and Alert, no acute distress. HEENT: Conjunctiva pink, Sclera clear, Mucus Membranes moist. Neck: Supple without masses and tenderness. Resp: Unlabored. Lungs clear to auscultation bilaterally. Heart: Regular Rate and rhythm, normal S1 and S2 without murmur, rub or gallop. Abdomen: Soft and non tender no organomegaly Extremities: No cyanosis,clubbing or edema. Skin: Warm and Dry. Plan Plan Patient is a 50-year-old male with a history of seizure disorder and admitted to the [facility] unit for suicidal ideation. He is currently being managed by psychiatry team. Suicidal ideation/schizophrenia History of seizure disorder Being managed by Psychiatry unit Constipation Milk of Magnesia Medical issues CBC, CMP, urinalysis are within normal limits and urine toxicology is negative No acute medical problems at this time Hospitalist Services we will follow for medical support as needed. At present, the patient has no acute medical issues. Nayely Fang Internal Medicine Resident, PGY-1 Date of Service: Sep 03, 2025 Billing Provider: JHONATAN LOPEZ MD Common Visit Codes: [id number] INP/OBS CARE(MOD) NORMA FANG, ZHOU Sep 03, 2025 18:42 JHONATAN LOPEZ MD Sep 03, 2025 21:47
[2025-09-03 19:00] VITALS: RESP 20; O2SAT 98
[2025-09-03 20:00] VITALS: BP 117/75; PULSE 76; RESP 20; TEMP 98.2; O2SAT 98
[2025-09-04 07:00] VITALS: RESP 16; O2SAT 99
[2025-09-04 08:00] VITALS: BP 109/66; PULSE 71; RESP 16; TEMP 98.3; O2SAT 99
--- NOTE | 2025-09-04 12:43 | PROGRESS NOTE ---
Progress Note Dictate Providers to CC ~ Central Line/PICC still needed: N\\A Antibiotic Ordered?: No MRSA Education MRSA Education Provided to pt: No Objective Vitals Vital Signs Date Time Temp Pulse Resp B/P (MAP) Pulse Ox O2 Delivery O2 Flow Rate FiO2 09/04/25 08:00 98.3 71 16 109/66 (80) 99 Room Air Problem\\Assessment\\Plan Problems/Diagnosis: (1) Schizoaffective disorder, chronic condition (2) Suicidal ideation Psychiatrist's Progress Note Date of Service: Sep 04, 2025 Notes CHART REVIEW Pt was placed on a 5150 hold after being evaluated by [facility] clinician due to decompensation at his board and care facility, [facility]. The pt is LPS conversed with a long history of mental illness, hospitalizations which led to his current conservatorship status. 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 The pt has a history of self-harm to include swallowing foreign objects to the point of requiring medical intervention.The ptappears to have fair insight and is concerned about his medications today. The pt reports that he's afraid that his medications and dosages are mixed up somehow. The pt is pleasant and happy that he is on the unit to obtain assistance in stabilization of his mental health in hopes that he can return to his current board and care placement. Placement will be determined as the pt stabilizes and his conversator decides an appropriate level of care and placement for the pt. Pt is a current client at [facility] and has a treatment team that supports him adequately. Discharge planning to begin once the pt is stabilized in his mental health symptoms. ASSESSMENT The patient was interviewed in observation room. The patient was actively ambulating in hallway. The patient endorses "I'm good." The patient endorses he is ready to go back to [facility]. Patient was informed that his hospice social worker we will follow up with his conservator regarding discharge date. The patient endorses no worsening mental health symptoms. Denies SI. Denies HI. Denies AVH. The patient endorses adequate sleep and food intake The patient is stable no acute distress noted. The patient presents as calm and cooperative. Per staff report patient is medication compliant. Per staff report no abnormal behaviors. Will continue daily assessment and adjusting treatment as needed. Closely monitor behavior and response to medication during hospitali zation. The patient is stable for discharge. Results Of any Diagn. Testing REVIEW OF LABS WBC 6.7 RBC 4.00 HEMOGLOBIN 12.7 HEMATOCRIT 37.2 PLATELET 195 SODIUM 136 POTASSIUM 3.9 CHLORIDE 100 ANION GAP 6 BUN 9 CREATININE 0.65 EGFR >90 GLUCOSE 76 CALCIUM 8.5 ALBUMIN 3.7 TSH URINALYSIS NEGATIVE URINE TOX SCREEN NEGATIVE TSH 3.48 Speech: Normal Eye Contact: Normal Motor Activity: Normal Affect: Full Orientation Impairment: None Memory Impairment: None Attention: Normal Hallucinations: None Other: None Suicidality: None Homicidality: None Delusions: None Behavior: Cooperative Insight: Fair Judgment: Fair Treatment VENLAFAXINE ER 225 MG P.O. DAILY CLOZAPINE 300 MG P.O. Q.A.M. CLOZAPINE 550 MG P.O. Q.H.S. RISPERIDONE 3 MG P.O. B.I.D. REMERON 45 MG P.O. Q.H.S. GABAPENTIN 600 MG PO TID 5250 HOLD-DTS- Patient is unable to formulate a plan to safety. We are still titrating medications to an effective dose while maintaining a therapeutic environment to prevent decompensation and readmission. Monitoring by Staff, Milieu, Group, and Individual counseling as needed -- According to the [place] Suicide Assessment the above named patient is on Q15 MINUTE CHECKS. Total time spent 45 minutes on REVIEW OF Clinical notes [X ] RN notes [X] PCT documentation [X] SW notes Labs [ X] Medications [X] Care trends/care activity [X] Vitals [X] DISCUSSION WITH slitter scorer cut off operator [X] Staff SW Treatment Team [X] Discharge UNSURE AT THIS TIME. DISCHARGE BACK TO [facility] ONCE STABLE CODING VISIT-PSYCHIATRY Date of Service: Sep 04, 2025 Billing Provider: TAIWO FRANCES APRN Psych Common Visit Codes: [id number] INP/OBS CARE(Low) TAIWO FRANCES APRN Sep 04, 2025 12:43
[2025-09-04 19:00] VITALS: RESP 16; O2SAT 96
[2025-09-04 20:00] VITALS: BP 104/64; PULSE 67; RESP 16; TEMP 97.4; O2SAT 96
[2025-09-05 07:00] VITALS: RESP 16; O2SAT 97
[2025-09-05 08:00] VITALS: BP 111/67; PULSE 70; RESP 16; TEMP 97.9; O2SAT 97
--- NOTE | 2025-09-05 11:37 | PROGRESS NOTE ---
Daily Progress Note Providers to CC ~ Antibiotic Timeout Antibiotic Ordered?: No Subjective seen and examined in the [facility] unit. Objective Vital Signs Date Time Temp Pulse Resp B/P (MAP) Pulse Ox O2 Delivery O2 Flow Rate FiO2 09/05/25 08:00 97.9 70 16 111/67 (82) 97 Room Air General: Awake and Alert, no acute distress. HEENT: Conjunctiva pink, Sclera clear, Mucus Membranes moist. Neck: Supple without masses and tenderness. Lungs clear to auscultation bilaterally. Heart: Regular Rate and rhythm, normal S1 and S2 without murmur, rub or gallop. Abdomen: Soft and non tender no organomegaly Extremities: No cyanosis,clubbing or edema. Skin: No rash or ulcers. Other Results Medications reviewed Problem\Assessment\Plan Patient is a 50-year-old male with a history of seizure disorder and admitted to the [facility] unit for suicidal ideation. He is currently being managed by psychiatry team. Suicidal ideation/schizophrenia: Continue treat per psych recommendations. History of seizure disorder: No seizures reported Hyperlipidemia: Continue atorvastatin Patient has no acute issues. I will sign off. Please contact the hospitalist team for any change in patient's medical condition. Hospitalist team will continue follow the patient as per hospital protocol. Date of Service: Sep 05, 2025 Billing Provider: ELIGIO HOUSE MD Common Visit Codes: [id number] INP/OBS CARE(LOW) ELIGIO HOUSE MD Sep 05, 2025 11:37
[2025-09-05 19:26] VITALS: RESP 18; O2SAT 97
[2025-09-05 19:29] VITALS: BP 102/66; PULSE 67; RESP 18; TEMP 98; O2SAT 97
[2025-09-06 07:00] VITALS: BP 93/56; PULSE 70; RESP 16; TEMP 98; O2SAT 96
[2025-09-06 09:02] LABS: MEAN PLATELET VOLUME 6.9 FL (7.4-10.4); RED CELL DISTRIBUTION WIDTH 13.0 % (11.5-14.5)
--- NOTE | 2025-09-06 10:52 | PROGRESS NOTE ---
Progress Note Dictate Providers to CC ~ Central Line/PICC still needed: N\\A Antibiotic Ordered?: No MRSA Education MRSA Education Provided to pt: No Objective Vitals Vital Signs Date Time Temp Pulse Resp B/P (MAP) Pulse Ox O2 Delivery O2 Flow Rate FiO2 09/06/25 07:00 16 96 Room Air 09/06/25 07:00 98.0 70 93/56 (68) Lab Results: 09/06/25 0837 Problem\\Assessment\\Plan Problems/Diagnosis: (1) Schizoaffective disorder, chronic condition (2) Suicidal ideation Psychiatrist's Progress Note Date of Service: Sep 05, 2025 Notes CHART REVIEW Pt was placed on a 5150 hold after being evaluated by [facility] clinician due to decompensation at his board and care facility, [facility]. The pt is LPS conversed with a long history of mental illness, hospitalizations which led to his current conservatorship status. 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 The pt has a history of self-harm to include swallowing foreign objects to the point of requiring medical intervention.The ptappears to have fair insight and is concerned about his medications today. The pt reports that he's afraid that his medications and dosages are mixed up somehow. The pt is pleasant and happy that he is on the unit to obtain assistance in stabilization of his mental health in hopes that he can return to his current board and care placement. Placement will be determined as the pt stabilizes and his conversator decides an appropriate level of care and placement for the pt. Pt is a current client at [facility] and has a treatment team that supports him adequately. Discharge planning to begin once the pt is stabilized in his mental health symptoms. ASSESSMENT The patient was interviewed in observation room. The patient was actively siting in rec room. The patient endorses "I'm doing good." The patient endorses no worsening mental health symptoms. Denies SI. Denies HI. Denies AVH. The patient endorses adequate sleep and food intake The patient is stable no acute distress noted. The patient presents as calm and cooperative. Per staff report patient is medication compliant. Per staff report no abnormal behaviors. Will continue daily assessment and adjusting treatment as needed. Closely monitor behavior and response to medication during hospitalization. Results Of any Diagn. Testing REVIEW OF LABS WBC 6.7 RBC 4.00 HEMOGLOBIN 12.7 HEMATOCRIT 37.2 PLATELET 195 SODIUM 136 POTASSIUM 3.9 CHLORIDE 100 ANION GAP 6 BUN 9 CREATININE 0.65 EGFR >90 GLUCOSE 76 CALCIUM 8.5 ALBUMIN 3.7 TSH Speech: Normal Eye Contact: Normal Motor Activity: Normal Affect: Full Mood: Euthymic Orientation Impairment: None Memory Impairment: None Attention: Normal Hallucinations: None Other: None Suicidality: None Homicidality: None Delusions: None Behavior: Cooperative Insight: Good Judgment: Good Treatment VENLAFAXINE ER 225 MG P.O. DAILY CLOZAPINE 300 MG P.O. Q.A.M. CLOZAPINE 550 MG P.O. Q.H.S. RISPERIDONE 3 MG P.O. B.I.D. REMERON 45 MG P.O. Q.H.S. GABAPENTIN 600 MG PO TID 5250 HOLD-DTS- Patient is unable to formulate a plan to safety. We are still titrating medications to an effective dose while maintaining a therapeutic environment to prevent decompensation and readmission. Monitoring by Staff, Milieu, Group, and Individual counseling as needed -- According to the [place] Suicide Assessment the above named patient is on Q15 MINUTE CHECKS. Total time spent 25 minutes on REVIEW OF Clinical notes [X ] RN notes [X] PCT documentation [X] SW notes Labs [ X] Medications [X] Care trends/care activity [X] Vitals [X] DISCUSSION WITH ground crew lines person [X] Staff SW Treatment Team [X] Discharge UNSURE AT THIS TIME. DISCHARGE BACK TO [facility] ONCE STABLE CODING VISIT-PSYCHIATRY Date of Service: Sep 05, 2025 Billing Provider: TAIWO FRANCES APRN Psych Common Visit Codes: [id number] INP/OBS CARE(Low) TAIWO FRANCES APRN Sep 06, 2025 10:52
--- NOTE | 2025-09-06 10:57 | PROGRESS NOTE ---
Progress Note Dictate Providers to CC ~ Central Line/PICC still needed: N\\A Antibiotic Ordered?: No MRSA Education MRSA Education Provided to pt: No Objective Vitals Vital Signs Date Time Temp Pulse Resp B/P (MAP) Pulse Ox O2 Delivery O2 Flow Rate FiO2 09/06/25 07:00 16 96 Room Air 09/06/25 07:00 98.0 70 93/56 (68) Lab Results: 09/06/25 0837 Problem\\Assessment\\Plan Problems/Diagnosis: (1) Schizoaffective disorder, chronic condition (2) Suicidal ideation Psychiatrist's Progress Note Date of Service: Sep 06, 2025 Notes CHART REVIEW Pt was placed on a 5150 hold after being evaluated by [facility] clinician due to decompensation at his board and care facility, [facility]. The pt is LPS conversed with a long history of mental illness, hospitalizations which led to his current conservatorship status. 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 The pt has a history of self-harm to include swallowing foreign objects to the point of requiring medical intervention.The ptappears to have fair insight and is concerned about his medications today. The pt reports that he's afraid that his medications and dosages are mixed up somehow. The pt is pleasant and happy that he is on the unit to obtain assistance in stabilization of his mental health in hopes that he can return to his current board and care placement. Placement will be determined as the pt stabilizes and his conversator decides an appropriate level of care and placement for the pt. Pt is a current client at [facility] and has a treatment team that supports him adequately. Discharge planning to begin once the pt is stabilized in his mental health symptoms. ASSESSMENT The patient was interviewed in observation room. The patient was actively siting in rec room. The patient endorses "good." The patient endorses he is ready for discharge. The patient was informed he will discharge back to [facility] on Thursday. The patient endorses no worsening mental health symptoms. Denies SI. Denies HI. Denies AVH. The patient endorses adequate sleep and food intake The patient is stable no acute distress noted. The patient presents as calm and cooperative. Per staff report patient is medication compliant. Per staff report no abnormal behaviors. Will continue daily assessment and adjusting treatment as needed. Closely monitor behavior and response to medication during hospitalization. Results Of any Diagn. Testing Results Of any Diagn. Testing REVIEW OF LABS WBC 6.7 RBC 4.00 HEMOGLOBIN 12.7 HEMATOCRIT 37.2 PLATELET 195 SODIUM 136 POTASSIUM 3.9 CHLORIDE 100 ANION GAP 6 BUN 9 CREATININE 0.65 EGFR >90 GLUCOSE 76 CALCIUM 8.5 ALBUMIN 3.7 TSH Speech: Normal Eye Contact: Normal Motor Activity: Normal Affect: Full Orientation Impairment: None Memory Impairment: None Attention: Normal Hallucinations: None Other: None Suicidality: None Homicidality: None Delusions: None Behavior: Cooperative Insight: Fair Judgment: Fair Treatment VENLAFAXINE ER 225 MG P.O. DAILY CLOZAPINE 300 MG P.O. Q.A.M. CLOZAPINE 550 MG P.O. Q.H.S. RISPERIDONE 3 MG P.O. B.I.D. REMERON 45 MG P.O. Q.H.S. GABAPENTIN 600 MG PO TID 5250 HOLD-DTS- Patient is unable to formulate a plan to safety. We are still titrating medications to an effective dose while maintaining a therapeutic environment to prevent decompensation and readmission. Monitoring by Staff, Milieu, Group, and Individual counseling as needed -- According to the [place] Suicide Assessment the above named patient is on Q15 MINUTE CHECKS. Total time spent 30 minutes on REVIEW OF Clinical notes [X ] RN notes [X] PCT documentation [X] SW notes Labs [ X] Medications [X] Care trends/care activity [X] Vitals [X] DISCUSSION WITH entry level receptionist [X] Staff SW Treatment Team [X] Discharge UNSURE AT THIS TIME. DISCHARGE BACK TO [facility] ONCE STABLE CODING VISIT-PSYCHIATRY Date of Service: Sep 06, 2025 Billing Provider: TAIWO FRANCES APRN Psych Common Visit Codes: [id number] INP/OBS CARE(Low) TAIWO FRANCES APRN Sep 06, 2025 10:57
[2025-09-06 19:00] VITALS: RESP 16; O2SAT 95
[2025-09-06 19:49] VITALS: BP 105/63; PULSE 78; RESP 18; TEMP 97.9; O2SAT 95
[2025-09-07 07:00] VITALS: BP 108/62; PULSE 61; RESP 15; TEMP 97.5; O2SAT 97
--- NOTE | 2025-09-07 09:35 | PROGRESS NOTE ---
Progress Note Dictate Providers to CC ~ Central Line/PICC still needed: N\\A Antibiotic Ordered?: No MRSA Education MRSA Education Provided to pt: No Objective Vitals Vital Signs Date Time Temp Pulse Resp B/P (MAP) Pulse Ox O2 Delivery O2 Flow Rate FiO2 09/06/25 19:49 97.9 78 18 105/63 (77) 95 Room Air Lab Results: 09/06/25 0837 Problem\\Assessment\\Plan Problems/Diagnosis: (1) Schizoaffective disorder, chronic condition (2) Suicidal ideation Psychiatrist's Progress Note Date of Service: Sep 07, 2025 Notes CHART REVIEW Pt was placed on a 5150 hold after being evaluated by [facility] clinician due to decompensation at his board and care facility, [facility]. The pt is LPS conversed with a long history of mental illness, hospitalizations which led to his current conservatorship status. 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 The pt has a history of self-harm to include swallowing foreign objects to the point of requiring medical intervention.The ptappears to have fair insight and is concerned about his medications today. The pt reports that he's afraid that his medications and dosages are mixed up somehow. The pt is pleasant and happy that he is on the unit to obtain assistance in stabilization of his mental health in hopes that he can return to his current board and care placement. Placement will be determined as the pt stabilizes and his conversator decides an appropriate level of care and placement for the pt. Pt is a current client at [facility] and has a treatment team that supports him adequately. Discharge planning to begin once the pt is stabilized in his mental health symptoms. ASSESSMENT The patient was interviewed in observation room. The patient was actively siting in rec room appears to be watching TV. The patient endorses "I am doing better than when I came in." The patient endorses no worsening mental health symptoms. Denies SI. Denies HI. Denies AVH. The patient endorses adequate sleep and food intake The patient is stable no acute distress noted. The patient presents as calm and cooperative. The patient has shown significant improvement since admission.Per staff report patient is medication compliant. Per staff report no abnormal behaviors. Will continue daily assessment and adjusting treatment as needed. Closely monitor behavior and response to medication during hospitalization. Results Of any Diagn. Testing REVIEW OF LABS WBC 6.7 RBC 4.00 HEMOGLOBIN 12.7 HEMATOCRIT 37.2 PLATELET 195 SODIUM 136 POTASSIUM 3.9 CHLORIDE 100 ANION GAP 6 BUN 9 CREATININE 0.65 EGFR >90 GLUCOSE 76 CALCIUM 8.5 ALBUMIN 3.7 TSH Speech: Other (CIRCUMSTANTIAL) Eye Contact: Normal Motor Activity: Normal Affect: Full Orientation Impairment: None Memory Impairment: None Attention: Normal Hallucinations: None Other: None Suicidality: None Homicidality: None Delusions: None Behavior: Cooperative Insight: Fair Judgment: Fair Treatment VENLAFAXINE ER 225 MG P.O. DAILY CLOZAPINE 300 MG P.O. Q.A.M. CLOZAPINE 550 MG P.O. Q.H.S. RISPERIDONE 3 MG P.O. B.I.D. REMERON 45 MG P.O. Q.H.S. GABAPENTIN 600 MG PO TID 5250 HOLD-DTS- Patient is unable to formulate a plan to safety. We are still titrating medications to an effective dose while maintaining a therapeutic environment to prevent decompensation and readmission. Monitoring by Staff, Milieu, Group, and Individual counseling as needed -- According to the [place] Suicide Assessment the above named patient is on Q15 MINUTE CHECKS. Total time spent 25 minutes on REVIEW OF Clinical notes [X ] RN notes [X] PCT documentation [X] SW notes Labs [ X] Medications [X] Care trends/care activity [X] Vitals [X] DISCUSSION WITH hospice community liaison [X] Staff SW Treatment Team [X] Discharge UNSURE AT THIS TIME. DISCHARGE BACK TO [facility] ONCE STABLE CODING VISIT-PSYCHIATRY Date of Service: Sep 07, 2025 Billing Provider: TAIWO FRANCES APRN Psych Common Visit Codes: [id number] INP/OBS CARE(Low) TAIWO FRANCES APRN Sep 07, 2025 09:35
--- NOTE | 2025-09-07 18:33 | PROGRESS NOTE- Residence ---
Progress Note - Resident Providers to CC Resident Creating Document: NORMA FANG, RES ~ Antibiotic Timeout Antibiotic Ordered?: No Subjective Patient was seen and examined in the [facility] unit. He was alert, communicative, in no acute distress. Patient endorses that his constipation improved with milk of magnesia. He was advised to notify staff if constipation persists or does not improve. Objective Vital Signs Date Time Temp Pulse Resp B/P (MAP) Pulse Ox O2 Delivery O2 Flow Rate FiO2 09/07/25 07:00 97.5 61 15 108/62 (77) 97 Room Air Result Diagram: 09/06/25 0837 General: Awake and Alert, no acute distress. HEENT: Conjunctiva pink, Sclera clear, Mucus Membranes moist. Neck: Supple without masses and tenderness. Resp: Unlabored. Lungs clear to auscultation bilaterally. Heart: Regular Rate and rhythm, normal S1 and S2, grade 2 + systolic murmur over right 2nd intercostal space. Abdomen: Soft and non tender no organomegaly Extremities: No cyanosis,clubbing or edema. Skin: Warm and Dry. Assessment Assessment Patient is a 50-year-old male with a history of seizure disorder and admitted to the [facility] unit for suicidal ideation. He is currently being managed by psychiatry team. Plan Plan Suicidal ideation/schizophrenia History of seizure disorder Being managed by Psychiatry unit Constipation, improved Milk of Magnesia Medical issues CBC, CMP, urinalysis are within normal limits and urine toxicology is negative No acute medical problems at this time Follow up with echocardiogram ( systolic murmur over right 2nd intercostal space on CVS examination ) Hospitalist Services we will follow for medical support as needed. At present, the patient has no acute medical issues. Nayely Fang Internal Medicine Resident, PGY-1 Date of Service: Sep 07, 2025 Billing Provider: JHONATAN LOPEZ MD Common Visit Codes: [id number] INP/OBS CARE(MOD) NORMA FANG, ZHOU Sep 07, 2025 18:33 JHONATAN LOPEZ MD Sep 08, 2025 06:27
[2025-09-07] MEDS ORDERED: PERFLUTREN PROTEIN-A MICROSPHR (Optison) 0.22 MG/ML 3ML VIAL IV ONE (18:40)
[2025-09-07 19:00] VITALS: RESP 16
[2025-09-07 20:00] VITALS: BP 98/62; PULSE 68; RESP 16; TEMP 98.7; O2SAT 98
--- NOTE | 2025-09-08 06:33 | DISCHARGE SUMMARY ---
Discharge Summary Providers to CC ~ Discharge Summary Admission Diagnosis: SCHIZOAFFECTIVE DISORDER, CHRONIC CONDITION. SUICIDAL IDEATION Hospital Course DATE OF ADMISSION: DATE OF DISCHARGE: Discharge Diagnosis\\Comment: SCHIZOAFFECTIVE DISORDER, CHRONIC CONDITION. SUICIDAL IDEATION Operations\\Procedures: NONE Consultants: MEDICAL TEAM Complications: NONE Condition on DC: Stable 2 or more antipsychotic used: Yes 2/more antipsychotic addressed: Yes Does Patient smoke: Yes Smoking education given.: Yes Discharge Summary: CHART REVIEW Pt was placed on a 5150 hold after being evaluated by [facility] clinician due to decompensation at his board and care facility, [facility]. The pt is LPS conversed with a long history of mental illness, hospitalizations which led to his current conservatorship status. 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 The pt has a history of self-harm to include swallowing foreign objects to the point of requiring medical intervention.The ptappears to have fair insight and is concerned about his medications today. The pt reports that he's afraid that his medications and dosages are mixed up somehow. The pt is pleasant and happy that he is on the unit to obtain assistance in stabilization of his mental health in hopes that he can return to his current board and [facility] placement. Placement will be determined as the pt stabilizes and his conversator decides an appropriate level of care and placement for the pt. Pt is a current client at [facility] and has a treatment team that supports him adequately. Discharge planning to begin once the pt is stabilized in his mental health symptoms. Patient actively seen and examined on day of discharge 09/08/2025, by myself, ANAHI Mcgee. The patient is interviewed in psychiatric exam room. The patient endorses "Good." Denies SI. Denies HI. Denies AVH. Micah was able to formulate a safety plan which includes going to the emergency room if symptoms return or worsen. Call [phone] or [phone] for immediate assistance if necessary During his hospital stay, Micah received multidisciplinary treatment he adhered to his medication regimen and has been pleasant and cooperative. He denies any suicidal ideation (SI), homicidal ideation (HI), auditory/visual hallucination (HI). Staff has reported no behavioral issues, and the patient has been sleeping well, adequate food intake, with no mood or behavioral changes noted. The decision to discharge Micah was made in consensus with the treatment team, including the social worker health services, community service officer, and cupola charger on duty. MENTAL STATUS EXAM APPEARANCE: APPROPRIATELY. DRESSED IN STREET CLOTHING. SPEECH: CIRCUMSTANTIAL EYE CONTACT: NORMAL AFFECT: CONGRUENT WITH MOOD MOOD: "GOOD" ORIENTATION IMPAIRMENT: NONE MEMORY IMPAIRMENT: NONE ATTENTION: NORMAL HALLUCINATIONS: NONE SUICIDALITY: NONE HOMICIDALITY: NONE DELUSIONS: NONE BEHAVIOR: COOPERATIVE, PLEASANT JUDGMENT: GOOD INSIGHT: GOOD Continue Current Inpatient Psychotropic Regimen @ home Follow-Up with Psychiatric Provider Safety Plan Discussed DISCHARGE CONDITION: His readiness for discharge is supported by his stable mental status, adherence to treatment, and proactive approach to managing his mental health. Denies SI. Denies HI. Denies A/V/H. The patient has been informed to continue follow-up care to ensure ongoing support and monitoring. Patient discharged to [facility]. *Problems/Diagnosis: (1) Schizoaffective disorder, chronic condition Status: Acute (2) Suicidal ideation Status: Resolved Total Time Spent on D/C: > 30 Minutes Counseling Services Smoking & Tobacco Cessation: > 10 Minutes CODING VISIT-PSYCHIATRY Date of Service: Sep 08, 2025 Billing Provider: TAIWO FRANCES APRN Psych Common Visit Codes: [id number] DISCH DAY >30min TAIWO FRANCES APRN Sep 08, 2025 06:28
[2025-09-08 07:00] VITALS: BP 112/76; PULSE 81; RESP 16; O2SAT 95
[2025-09-08] MEDS ORDERED: CLOZ100T13 PO (09:15)
[2025-09-08] MEDS ORDERED: MIRT-87 PO (09:15)
[2025-09-08] MEDS ORDERED: OXCA150T14 PO (09:15)
== END 2025-09-08 09:30 | disposition home or self-care (01) | DRG 885 ==
LOC: ER 13:51 → UNDOADMIN 08-29 14:15 → ED HOLD 08-29 14:15 → ADULT MH 08-29 14:16 → ED HOLD 08-29 16:35 → ADULT MH 08-29 16:35
PROVIDERS: ADMIT Psychiatry & Neurology Psychiatry; ATTEND Psychiatry & Neurology Psychiatry
PROC: GZHZZZZ Group Psychotherapy (ICD-10-PCS; principal; 2025-08-30)
PROC: GZ51ZZZ Individual Psychotherapy, Behavioral (ICD-10-PCS; 2025-08-30)
DX: F25.9 Schizoaffective disorder, unspecified (principal); R45.851 Suicidal ideations; G40.802 Other epilepsy, not intractable, without status epilepticus; Z20.822 Contact with and (suspected) exposure to COVID-19; K59.09 Other constipation; F41.9 Anxiety disorder, unspecified; F15.90 Other stimulant use, unspecified, uncomplicated
CPT/HCPCS: 36415; 80048; 80305; 80320; 81003; 84443; 85025; 87081; 87811; 99285